=== PATIENT | male | born 1990 | race Caucasian/White ===

== ENCOUNTER 2018-09-07 10:39 | Emergency (ER) | payer MEDICAID ==
[~2018-09-07] VITALS: Ht 182.9 cm; Wt 90.9 kg
[2018-09-07 10:56] VITALS: Ht 182.9 cm; Wt 90.9 kg
[2018-09-07 12:42] VITALS: BP 122/64
== END 2018-09-07 12:43 | disposition left against medical advice (07) ==
LOC: D.ER 10:39
DX: K08.89 Other specified disorders of teeth and supporting structures (principal)

== ENCOUNTER 2019-03-04 16:25 | Emergency (ER) | payer MEDICAID ==
[~2019-03-04] VITALS: Ht 182.9 cm; Wt 100.0 kg
[2019-03-04 16:28] VITALS: BP 146/94; Ht 182.9 cm; Wt 100.0 kg
[2019-03-04] MEDS ORDERED: PENICILLIN V P500 MG PO (16:53)
== END 2019-03-04 17:11 | disposition home or self-care (01) ==
LOC: D.ER 16:25
DX: K08.9 Disorder of teeth and supporting structures, unspecified (principal)

== ENCOUNTER 2020-02-18 18:29 | Emergency (ER) | payer SELFPAY ==
[~2020-02-18] VITALS: Ht 182.9 cm; Wt 100.0 kg
[~2020-02-18 18:29] MED LIST: PENICILLIN V P500 MG PO
[2020-02-18 18:34] VITALS: Ht 182.9 cm; Wt 100.0 kg
[2020-02-18 18:52] LABS: BILIRUBIN NEGATIVE (NEGATIVE); KETONE NEGATIVE (NEGATIVE); NITRITE NEGATIVE (NEGATIVE); UROBILINOGEN NORMAL mg/dL (< 2)
[2020-02-18 19:01] LABS: BASOPHILS 0.1 % (0-2); EOSINOPHILS 3.1 % (0-7); HEMATOCRIT 43.9 % (42.0-54.0); HEMOGLOBIN 14.8 g/dL (13.5-17.5); IMMATURE GRANULOCYTES 0.3 % (0-5); LYMPHOCYTES 25.8 % (15-50); MCH 30.5 pg (26.0-34.0); MCHC 33.7 g/dL (31.0-37.0); MCV 90.3 fL (80.0-100.0); MEAN PLATELET VOLUME 9.7 fL (7.4-10.4); NEUTROPHILS 61.7 % (40-80); PLATELET COUNT 252 10x3/uL (130-400); RBC 4.86 10x6/uL (4.20-6.10); RDW 12.9 % (11.5-14.5)
[2020-02-18 19:09] LABS: CALC OSMOLALITY 275 mosm/kg (275-300); CALCIUM 9.3 mg/dL (8.5-10.1); CARBON DIOXIDE 28.2 mmol/L (21.0-32.0); CHLORIDE - SERUM 105 mmol/L (98-107); CREATININE - SERUM 1.1 mg/dL (0.6-1.3); GLUCOSE 105 mg/dL (74-106); POTASSIUM - SERUM 3.2 mmol/L (3.5-5.1); SODIUM 138 mmol/L (136-145); UREA NITROGEN 13 mg/dL (7-18); eGFR NON AFRICAN AMERICAN 85 mL/min (90-120)
[2020-02-18 19:15] LABS: ALBUMIN 3.6 g/dL (3.4-5.0); ALKALINE PHOSPHATASE 98 U/L (30-120); ALT (SGPT) 52 U/L (10-68); BILIRUBIN - TOTAL 0.26 mg/dL (0.2-1.3); PROTEIN - SERUM 7.2 g/dL (6.4-8.2)
[2020-02-18] MEDS ORDERED: VOLTAREN75 MG PO (19:58)
[2020-02-18 20:25] VITALS: BP 132/88
== END 2020-02-18 20:25 | disposition home or self-care (01) ==
LOC: D.ER 18:29
PROVIDERS: Family Medicine
DX: N50.3 Cyst of epididymis (principal); N50.82 Scrotal pain